=== PATIENT | male | born 1990 | race Caucasian/White ===

== ENCOUNTER 2022-06-21 18:01 | Emergency (ER) | payer OTHER ==
[~2022-06-21] VITALS: Ht 177.8 cm; Wt 73.0 kg
[2022-06-21 18:11] VITALS: BP 128/81
[2022-06-21] MEDS ORDERED: CYCL10TA21 MT (22:54)
[2022-06-21] MEDS ORDERED: IBUP-2029 MT (22:54)
== END 2022-06-21 23:10 | disposition home or self-care (01) ==
LOC: ER 18:01
DX: M62.838 Other muscle spasm (principal); G89.11 Acute pain due to trauma; W22.8XXA Striking against or struck by other objects, initial encounter; X50.9XXA Other and unspecified overexertion or strenuous movements or postures, initial encounter; Y93.01 Activity, walking, marching and hiking; Y92.89 Other specified places as the place of occurrence of the external cause; Y99.0 Civilian activity done for income or pay
CPT/HCPCS: 99284